=== PATIENT | male | born 1990 | race Two or more races ===

== ENCOUNTER 2023-05-06 21:32 | Emergency (ER) | payer MEDICAID, OTHER ==
[~2023-05-06] VITALS: Ht 172.7 cm; Wt 88.4 kg
[2023-05-07] MEDS: HYDROmorphone HCL 2 MG/ML VL/or syr IM ONE (01:35)
[2023-05-07 02:20] VITALS: BP 150/96; PULSE 110; RESP 14; TEMP 98.3; O2SAT 96
== END 2023-05-07 01:52 | disposition short-term general hospital (02) ==
LOC: ER 21:32 → EDBD 21:32 → ER 05-07 01:52
DX: S42.302A Unspecified fracture of shaft of humerus, left arm, initial encounter for closed fracture (principal); S42.151A Displaced fracture of neck of scapula, right shoulder, initial encounter for closed fracture; V09.9XXA Pedestrian injured in unspecified transport accident, initial encounter; Y93.89 Activity, other specified; Y92.89 Other specified places as the place of occurrence of the external cause; Y99.8 Other external cause status
CPT/HCPCS: 70450; 71250; 72040; 72125; 72131; 73030; 74176; 96372; 99285; J1170

== ENCOUNTER 2025-02-10 16:34 | Emergency (ER) | payer MEDICAID, OTHER ==
[~2025-02-10] VITALS: Ht 165.1 cm; Wt 87.1 kg
[~2025-02-10 16:34] MED LIST: ARIP10TA29 PO
--- NOTE | 2025-02-10 17:50 | ED.PDOC ---
Hught. trauma (HPI) HPI Comments 34 y/o M, presents to the ED for CC of dog bite. Patient states, he was walking home today (02/10/25) when he was bite multiple times to his right hand by a stray dog. Patient has multiple abrasions and puncture wounds to his right hand and left forearm. Patient comments, that he does not currently know if his Jeannine hendrickson shot is UTD. Patient denies any further injury or symptoms at this time. Chief Complaint: Animal Bite Time Seen by MD: 17:45 Reviewed notes: Nurses Notes, Medications, Allergies Allergies: Coded Allergies: NO KNOWN ALLERGIES (Unverified , 05/06/23) Home Meds Reported Medications Aripiprazole (Aripiprazole) 10 Mg Tab, 1 TAB PO DAILY 07/06/23 Information Source: Patient Mode of Arrival: Ambulatory Severity: Moderate Timing: Minutes Duration: Minutes Prehospital treatment: None Location: (L) Forearm, (R) Hand Mechanism: Other (DOG BITE) Associated signs and symtoms: None Past Medical History PAST MEDICAL HISTORY: Schizophrenia Surgical History: Denies all surgeries Family History Family History: Reviewed,noncontributory to illness, No family hx of Cancer, No family hx of DM, No family hx of Heart edgar, No family hx of HTN, No family hx ofKidney edgar, No family hx of Liver edgar, No family hx of Lung edgar, No family hx of Stroke Social History Smoker: Non-Smoker Alcohol: Denies ETOH Use Drugs: Denies Drug Use Lives In: Home Constitutional: denies: chills, diaphoresis, fatigue, fever, malaise, sweats, weakness, others EENTM: denies: blurred vision, double vision, ear bleeding, ear discharge, ear drainage, ear pain, ear ringing, eye pain, eye redness, hearing loss, mouth pain, mouth swelling, nasal discharge, nose bleeding, nose congestion, nose pain, photophobia, tearing, throat pain, throat swelling, voice changes, others Respiratory: denies: cough, hemoptysis, orthopnea, SOB at rest, shortness of breath, SOB with excertion, stridor, wheezing, others Cardiovascular: denies: chest pain, dizzy spells, diaphoresis, Dyspnea on exertion, edema, irregular heart beat, left arm pain, lightheadedness, palpitations, PND, syncope, others Gastrointestinal: denies: abdomen distended, abdominal pain, blood streaked bowels, constipated, diarrhea, dysphagia, difficulty swallowing, hematemesis, melena, nausea, poor appetite, poor fluid intake, rectal bleeding, rectal pain, vomiting, others Genitourinary: denies: burning, dysuria, flank pain, frequency, hematuria, incontinence, penile discharge, penile sore, pain, testicle pain, testicle swelling, urgency, others Neurological: denies: dizziness, fainting, headache, left sided numbness, left sided weakness, numbness, paresthesia, pre-existing deficit, right sided numbness, right sided weakness, seizure, speech problems, tingling, tremors, weakness, others Musculoskeletal: denies: back pain, gout, joint pain, joint swelling, muscle pain, muscle stiffness, neck pain, others Integumetry: reports: bruises, wounds (puncture wounds); denies: change in color, change in hair/nails, dryness, laceration, lesions, lumps, rash, others Allergic/Immunocompromised: denies: Difficulty Healing, Frequent Infections, Hives, Itching, others Hematologic/Lymphatic: denies: anemia, blood clots, easy bleeding, easy bruising, swollen glands, others Endocrine: denies: excessive hunger, excessive sweating, excessive thirst, excessive urination, flushing, intolerance to cold, intolerance to heat, unexplained weight gain, unexplained weight loss, others Psychiatric: denies: anxiety, bipolar disorder, depression, hopeless, panic disorder, schizophrenia, sleepless, suicidal, others All Other Systems: Reviewed and Negative Physical Exam General Appearance: No Apparent Distress, Normal HEENT: Normal ENT Inspection, Pharynx Normal Neck: Full Range of Motion, Non-Tender, Normal, Normal Inspection Respiratory: Chest Non-Tender, Lungs Clear, No Accessory Muscle Use, No Re spiratory Distress, Normal Breath Sounds Cardiovascular: No Edema, No Murmur, No Gallop, Normal Peripheral Pulses, Regular Rate/Rhythm Breast Exam: Deferred Gastrointestinal: No Organomegaly, Non Tender, No Pulsatile Mass, Normal Bowel Sounds, Soft Genitalia: Deferred Pelvic: Deferred Rectal: Deferred Extremities: No calf tenderness, Normal capillary refill, Normal inspection, Normal range of motion, Non-tender, No pedal edema Musculoskeletal : Apperance: Normal Neurologic: Alert, animal care provider II-XII nml as Tested, No Motor Deficits, Normal Affect, Normal Mood, No Sensory Deficits Cerebellar Function: Normal Reflexes: Normal Skin: Dry, Normal Color, Warm (multiple puncture wounds present right hand phalanages I-V, X2 puncture wounds to right forarm, swelling and brusing present to the right wrist ) Lymphatic: No Adenopathy Was a procedure done? Was a procedure done?: No Differential Diagnosis Multiple Trauma: Abrasions, Laceration X-Ray, Labs, Meds, VS Vital Signs Date Time Temp Pulse Resp B/P (MAP) Pulse Ox O2 Delivery O2 Flow Rate FiO2 02/10/25 16:36 98.2 110 16 152/102 98 98.2 Current Medications Medications (Trade) Dose Ordered Sig/Miguel Route Start Time Stop Time Status Last Admin Ceftriaxone Sodium (Rocephin) 1,000 mg ONCE ONCE IM 02/10/25 17:45 02/10/25 17:46 DC 02/10/25 18:23 Diphtheria/ Tetanus/Acell Pertussis (Boostrix T-Dap) 0.5 ml ONCE ONCE IM 02/10/25 17:45 02/10/25 17:46 DC 02/10/25 18:22 Acetaminophen/ Hydrocodone Bitart ([place] 5/325MG Tab) 1 tab ONCE ONCE PO 02/10/25 17:45 02/10/25 17:46 DC 02/10/25 18:04 X-Ray, Labs, Meds, VS Comment Imaging was reviewed by this provider, there is no obvious pathological or acute disease process. Pending radiology review Labs were reviewed by this provider, no abnormalities Vital signs reviewed by this provider, clinically stable Explained to patient the risk of high infection with dog bites. Patient be given IV antibiotics in the emergency department and will be sent home with Augmentin. Time of 1ST Reevaluation: 18:15 Reevaluation 1ST: Unchanged Patient Education/Counseling: Diagnosis, Treatment, Need For Follow Up (Follow up in two days for wound recheck, follow up 2-4 days with PCP) Family Education/Counseling: No Family Present Departure 1 Departure Time of Disposition: 18:53 Impression: Primary Impression: Animal bite Disposition: 01 HOME / SELF CARE / HOMELESS Condition: Stable e-Prescriptions Ibuprofen Micronized (Ibuprofen) 800 Mg Tab 800 MG PO TID PRN, #40 TAB Prov: ANNETTE ANDRADE 02/10/25 Amoxicillin & Pot Clavulanate (AUGMENTIN TABLET) 875 Mg Tb 875 MG PO BID for 7 Days, #14 TAB Prov: ANNETTE ANDRADE 02/10/25 Discharged With: Self Critical Care Note Critical Care Time?: No Stability Stability form required: No Heart Score Heart Score: Heart Score Response (Comments) Value History N/A 0 EKG N/A 0 Age N/A 0 Risk Factors N/A 0 Troponin N/A 0 Total 0 I personally scribed for ANNETTE ANDRADE ([email or web address]) on 02/10/25 at 17:50. Electronically submitted by Jaelyn Marie ([email or web address]). ANNETTE ANDRADE Feb 10, 2025 17:50
[2025-02-10] MEDS: HYDROcodone-ACET 5/325MG TAB PO ONE (18:04)
[2025-02-10] MEDS: TETANUS-DIPTH-ACEL PERTUSSIS 0.5ML SYR Tdap IM ONE (18:22)
[2025-02-10] MEDS: cefTRIAXone SOD 1,000 MG VL IM ONE (18:23)
--- NOTE | 2025-02-10 18:38 | DVH ---
Indication: dog bite Technique: XY R HAND 3 VIEW XRAYXY Comparison: None FINDINGS/IMPRESSION: No radiographic evidence for acute fracture or dislocation. Soft tissue edema along the dorsal aspect of the right hand most pronounced in the level of the distal metacarpal/MCP joint region. No radiopaque foreign body identified.
--- NOTE | 2025-02-10 18:43 | DVH ---
EXAM: XY L FOREARM XRAY INDICATION: 34 years old, Male; dog bite. TECHNIQUE: 2 views of the left forearm COMPARISON: None available at the time of dictation. FINDINGS/IMPRESSION: No radiographic evidence of an acute osseous abnormality. There is no acute fracture, osseous malalignment, or aggressive focal osseous lesion. Normal alignment. Normal soft tissues.
[2025-02-10] MEDS ORDERED: AUG875T PO (18:55)
[2025-02-10] MEDS ORDERED: IBUP-1455 PO (18:55)
[2025-02-10 20:30] VITALS: O2SAT 98
[2025-02-10 21:20] VITALS: BP 123/43; PULSE 84; RESP 18; TEMP 98.9; O2SAT 96
== END 2025-02-10 21:42 | disposition home or self-care (01) ==
LOC: ER 16:34
DX: S61.431A Puncture wound without foreign body of right hand, initial encounter (principal); S61.451A Open bite of right hand, initial encounter; F20.9 Schizophrenia, unspecified; Z79.899 Other long term (current) drug therapy; W54.0XXA Bitten by dog, initial encounter; Y93.01 Activity, walking, marching and hiking; Y92.89 Other specified places as the place of occurrence of the external cause; Y99.8 Other external cause status
CPT/HCPCS: 73090; 73130; 90471; 90715; 96372; 99284; J0696

== ENCOUNTER 2025-02-19 11:19 | Emergency (ER) | payer MEDICAID ==
[~2025-02-19] VITALS: Ht 170.2 cm; Wt 81.9 kg
[~2025-02-19 11:19] MED LIST changes: +AUG875T PO; +IBUP-1455 PO
--- NOTE | 2025-02-19 13:26 | ED.PDOC ---
Psychiatric HPI Comments This is a 34 year-old male who presents to the ED with a chief complaint of schizophrenic episode. Patient states he is talking to himself more than usual. Patient is compliant with his psych medication. Patient has no further concerns at this time. Patient denies any auditory hallucinations, visual hallucinations, SI, HI, or fatigue. Chief Complaint: Mental Health Time Seen by MD: 13:06 Reviewed Notes: Medications, Allergies Information Source: Patient Mode of Arrival: Ambulatory Severity of Mental Status: Mild Severity of Symptoms: Mild Past Medical History PAST MEDICAL HISTORY: Schizophrenia Surgical History: Denies all surgeries Family History Family History: Reviewed,noncontributory to illness, No family hx of Cancer, No family hx of DM, No family hx of Heart edgar, No family hx of HTN, No family hx ofKidney edgar, No family hx of Liver edgar, No family hx of Lung edgar, No family hx of Stroke Social History Smoker: Non-Smoker Alcohol: Denies ETOH Use Drugs: Denies Drug Use Lives In: Home Constitutional: denies: chills, diaphoresis, fatigue, fever, malaise, sweats, weakness, others EENTM: denies: blurred vision, double vision, ear bleeding, ear discharge, ear drainage, ear pain, ear ringing, eye pain, eye redness, hearing loss, mouth pain, mouth swelling, nasal discharge, nose bleeding, nose congestion, nose pain, photophobia, tearing, throat pain, throat swelling, voice changes, others Respiratory: denies: cough, hemoptysis, orthopnea, SOB at rest, shortness of breath, SOB with excertion, stridor, wheezing, others Cardiovascular: denies: chest pain, dizzy spells, diaphoresis, Dyspnea on exertion, edema, irregular heart beat, left arm pain, lightheadedness, palpitations, PND, syncope, others Gastrointestinal: denies: abdomen distended, abdominal pain, blood streaked bowels, constipated, diarrhea, dysphagia, difficulty swallowing, hematemesis, melena, nausea, poor appetite, poor fluid intake, rectal bleeding, rectal pain, vomiting, others Genitourinary: denies: burning, dysuria, flank pain, frequency, hematuria, incontinence, penile discharge, penile sore, pain, testicle pain, testicle swelling, urgency, others Neurological: denies: dizziness, fainting, headache, left sided numbness, left sided weakness, numbness, paresthesia, pre-existing deficit, right sided numbness, right sided weakness, seizure, speech problems, tingling, tremors, weakness, others Musculoskeletal: denies: back pain, gout, joint pain, joint swelling, muscle pain, muscle stiffness, neck pain, others Integumetry: denies: bruises, change in color, change in hair/nails, dryness, laceration, lesions, lumps, rash, wounds, others Allergic/Immunocompromised: denies: Difficulty Healing, Frequent Infections, Hives, Itching, others Hematologic/Lymphatic: denies: anemia, blood clots, easy bleeding, easy bruising, swollen glands, others Endocrine: denies: excessive hunger, excessive sweating, excessive thirst, excessive urination, flushing, intolerance to cold, intolerance to heat, unexplained weight gain, unexplained weight loss, others Psychiatric: reports: schizophrenia; denies: anxiety, bipolar disorder, depression, hopeless, panic disorder, sleepless, suicidal, others All Other Systems: Reviewed and Negative Physical Exam General Appearance: Moderate Distress HEENT: Normal ENT Inspection, Pharynx Normal, TMs Normal Neck: Full Range of Motion, Non-Tender, Normal, Normal Inspection Respiratory: Chest Non-Tender, Lungs Clear, No Accessory Muscle Use, No Respiratory Distress, Normal Breath Sounds Cardiovascular: No Edema, No JVD, No Murmur, No Gallop, Normal Peripheral Pulses, Regular Rate/Rhythm Breast Exam: Deferred Gastrointestinal: No Organomegaly, Non Tender, No Pulsatile Mass, Normal Bowel Sounds, Soft Genitalia: Deferred Pelvic: Deferred Rectal: Deferred Extremities: No calf tenderness, Normal capillary refill, Normal inspection, Normal range of motion, Non-tender, No pedal edema Musculoskeletal : Apperance: Normal Neurologic: Alert, transfer and line up worker II-XII nml as Tested, No Motor Deficits, Normal Affect, Normal Mood, No Sensory Deficits Cerebellar Function: Normal Reflexes: Normal Skin: Dry, Normal Color, Warm Peripheral Pulses: 3+ Radial (R), 3+ Radial (L) Lymphatic: No Adenopathy Was a procedure done? Was a procedure done?: No Psych Differential Dx Psych. Differential Dx: Anxiety, Schizoprenia X-Ray, Labs, Meds, VS Vital Signs Date Time Temp Pulse Resp B/P (MAP) Pulse Ox O2 Delivery O2 Flow Rate FiO2 11/29/25 11:21 97.8 74 18 147/110 98 97.8 Patient alert. Anxious pain History of schizophrenia. Vitals stable. Answering questions. He is not hearing voices. Denies suicidal or homicidal ideation. Was given prescription of clonazepam. Explained to the patient. Was told to follow up with his primary care physician. Was told to come back if there is any problem. Time of 1ST Reevaluation: 14:13 Reevaluation 1ST: Unchanged Patient Education/Counseling: Diagnosis, Treatment Family Education/Counseling: No Family Present Departure 1 Departure Time of Disposition: 15:53 Impression: Primary Impression: Schizophrenia Qualified Codes: F20.9 - Schizophrenia, unspecified Disposition: 01 HOME / SELF CARE / HOMELESS Condition: Good e-Prescriptions Clonazepam (Clonazepam) 1 Mg Tab 1 TAB PO QPM for 5 Days, #5 TAB Prov: ELIZABETH LUGO MD 02/19/25 Discharged With: Self Critical Care Note Critical Care Time?: No Stability Stability form required: No Heart Score Heart Score: Heart Score Response (Comments) Value History N/A 0 EKG N/A 0 Age N/A 0 Risk Factors N/A 0 Troponin N/A 0 Total 0 I personally scribed for ELIZABETH LUGO MD ([email or web address]) on 02/19/25 at 13:26. Electronically submitted by Triny Muhammad ([email or web address]). I personally scribed for ELIZABETH LUGO MD ([email or web address]) on 02/19/25 at 13:27. Electronically submitted by Triny [email or web address]). ELIZABETH LUGO MD Feb 19, 2025 13:26
[2025-02-19] MEDS ORDERED: CLON-853 PO (15:54)
[2025-02-19 16:16] LABS: Cannabinoid Screen, Urine Pos (NEGATIVE)
[2025-02-19 16:20] LABS: Amphetamine Screen, Urine Neg (NEGATIVE); Barbiturate Scree,Urine Neg (NEGATIVE); Benzodiazephine Screen, Urine Neg (NEGATIVE); Cocaine Screen, Urine Neg (NEGATIVE); Opiate Scree,Urine Neg (NEGATIVE); Phencyclidine Screen, Urine Neg (NEGATIVE)
[2025-02-19 18:22] VITALS: BP 122/76; PULSE 72; RESP 18; TEMP 97.6; O2SAT 98
== END 2025-02-19 18:25 | disposition home or self-care (01) ==
LOC: ER 11:19
DX: F20.9 Schizophrenia, unspecified (principal)
CPT/HCPCS: 80307